=== PATIENT | female | born 1990 | race Caucasian/White ===

== ENCOUNTER 2023-12-29 07:45 | Outpatient (CLI) | payer BC, SELFPAY ==
--- NOTE | ~2023-12-29 | XR_ITS ---
EXAMINATION: XR lumbar spine 2-3V DATE: 12/29/2023 08:02 INDICATION: Low back pain, unspecified. TECHNIQUE: 3 views of lumbar spine were obtained. COMPARISON: None. FINDINGS: There is 6 degrees dextrocurvature of thoracolumbar spine. There is mild chronic anterior w edging of T11 vertebral body. There is mildly decreased disc height at L4-L5. There is multilevel mil [id number] facet joint osteoarthritis. IMPRESSION: 1. Mild lumbar spondylosis. Reviewed, dictated and finalized at location A. IMPRESSION: 1. Mild lumbar spondylosis.
== END 2023-12-29 07:46 ==
PROVIDERS: PCP Family Medicine; Visit Provider Nurse Practitioner Family
DX: M54.50 Low back pain, unspecified (principal); M43.06 Spondylolysis, lumbar region
CPT/HCPCS: 72100

== ENCOUNTER 2024-01-21 13:30 | Outpatient (CLI) | payer BC, SELFPAY ==
--- NOTE | 2024-01-21 13:39 | ECHO_ITS ---
Patient Info Name: Zaira Marti Age: 33 years : 1990 Gender: Female Ht: 66 in Wt: 270 lbs BSA: 2.45 m2 HR: 81 bpm BP: 162 / 105 mmHg Technical Quality: Fair Exam Date: 01/21/2024 1:47 PM Exam Location: Echo Lab Patient Status: Outpatient Admit Date: 01/21/2024 Staff Ordering Physician: Chaparro, Jakob Odell NP Polishing Machine Operator: Cynthia Gill RDCS Attending Provider: Gonzalo Lisa MD Referring Physician: Chaparro SINGH; Exam Type: CA echo doppler color flow Study Info Indications R42 - Dizziness and giddiness I10 - Essential (primary) hypertension Complete two-dimensional, color flow and Doppler transthoracic echocardiogram is performed. Summary 1. Complete two-dimensional, color flow and Doppler transthoracic echocardiogram is performed. 2. Left ventricular chamber dimension is normal. 3. Left ventricular systolic function is normal, estimated at 65-70%. 4. The left ventricular diastolic function is normal. 5. E/e' 10 is mildly elevated. 6. Left atrial chamber dimension is mildly enlarged. 7. There is trace pulmonic regurgitation. Left Ventricle E/e' 10 is mildly elevated. Left ventricular chamber dimension is normal. Left ventricular systolic function is normal, estimated at 65-70%. The left ventricular diastolic function is normal. Right Ventricle Right ventricular systolic function is normal and with normal TAPSE 2.2 cm. Right ventricular chamber dimension is normal. Left Atria Left atrial chamber dimension is mildly enlarged. Right Atria Right atrial chamber dimension is normal. Aortic Valve The aortic valve is trileaflet. There is no aortic valve stenosis. There is no aortic valve regurgitation. Pulmonic Valve There is trace pulmonic regurgitation. Mitral Valve There is no mitral valve stenosis. There is no mitral valve regurgitation. Tricuspid Valve There is no tricuspid valve regurgitation. Pericardium/Pleural There is no pericardial effusion. Inferior Vena Cava Normal inferior vena cava with >50% collapse upon inspiration consistent with normal right atrial pressure, 5 mmHg. Aorta The aortic root size at the sinus of Valsalva is normal. Left Ventricular Outflow Tract Name Value Normal LVOT Doppler LVOT Peak Gradient 5 mmHg LVOT Mean Gradient 2 mmHg LVOT VTI 20 cm LVOT VTI/AV VTI Ratio 0.8 Pulmonic Valve Name Value Normal RVOT Doppler RVOT Peak Gradient 3 mmHg PV Doppler PV Peak Gradient 4 mmHg PV Regurgitation Doppler VA Peak End Diastolic Velocity 109 cm/s Mitral Valve Name Value Normal
== END 2024-01-21 13:31 | disposition home or self-care (01) ==
PROVIDERS: PCP Family Medicine; Visit Provider Family Medicine
DX: R42 Dizziness and giddiness (principal); I10 Essential (primary) hypertension
CPT/HCPCS: 93306

== ENCOUNTER 2024-01-30 13:28 | Outpatient (CLI) | payer BC, SELFPAY ==
--- NOTE | ~2024-01-30 | US_ITS ---
EXAMINATION: US soft tissue LE RT DATE: 01/30/2024 13:56 INDICATION: Lateral right thigh lump TECHNIQUE: Multiple grayscale and Doppler ultrasound images of the region of concern at the lateral r ight thigh were obtained. COMPARISON: None FINDINGS/IMPRESSION: Normal appearance to the subcutaneous fat at the region of concern. No abnormal masses or fluid colle ctions identified. Reviewed, dictated and finalized at location A.
== END 2024-01-30 13:29 | disposition home or self-care (01) ==
LOC: ANHIMG 13:28
PROVIDERS: PCP Family Medicine; Visit Provider Plastic Surgery
DX: R22.41 Localized swelling, mass and lump, right lower limb (principal)
CPT/HCPCS: 76882

== ENCOUNTER 2024-05-15 13:12 | Outpatient (CLI) | payer BC, SELFPAY ==
--- NOTE | ~2024-05-15 | CT_ITS ---
EXAMINATION: CT sinus wo con DATE: 05/15/2024 13:26 INDICATION: Nasal drainage. TECHNIQUE: Computed tomography (CT) of the paranasal sinuses was performed without intravenous contra st. Iterative reconstruction technique was employed. The dose-length product was 263.20 mGy-cm. 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 The ethmoid sinuses are clear. There is mild mucosal thickening in the spheno id and bilateral maxillary sinuses. There is rightward deviation of the nasal septum. Right middle tu rbinate is paradoxical. There are bilateral Leanna cells. Left ostiomeatal unit is patent. There is o cclusion of right ostiomeatal unit at the hiatus semilunaris and infundibulum. IMPRESSION: 1. Mild mucosal thickening in the paranasal sinuses with occluded right ostiomeatal unit. 2. Rightward deviation of the nasal septum. Reviewed, dictated and finalized at location A. IMPRESSION: 1. Mild mucosal thickening in the paranasal sinuses with occluded right ostiome atal unit. 2. Rightward deviation of the nasal septum.
== END 2024-05-15 13:13 | disposition home or self-care (01) ==
LOC: MICIMG 13:13
DX: J34.89 Other specified disorders of nose and nasal sinuses (principal); J34.2 Deviated nasal septum
CPT/HCPCS: 70486

== ENCOUNTER 2024-10-29 12:45 | Outpatient (CLI) | payer BC, SELFPAY ==
--- NOTE | ~2024-10-29 | MR_ITS ---
MR breast BI wo/w con 10/29/2024 16:37 CDT INDICATION: Family history of breast cancer. TECHNIQUE: MRI of the breasts perform using standard protocol pre-and post IV contrast with the follo wing sequences: Axial T2 STIR, axial T1, axial vibrant T1 with fat suppression precontrast and multip hasic postcontrast. 20 cc of ProHance administered intravenously. COMPARISON: No prior studies for comparison. FINDINGS: Not dense: There are scattered areas of fibroglandular content. Right breast: There are no abnormalities on the precontrast sequences. There is minimal background pa renchymal enhancement. No enhancing lesions following contrast administration. No areas of enhancem ent meeting threshold criteria on CAD analysis. There are normal-appearing intramammary lymph nodes. No evidence of signal abnormalities in the axillary or internal mammary node distributions. LEFT BREAST: No signal abnormalities on precontrast sequences. There is minimal background parenchym al enhancement. No enhancing lesions following contrast administration. No areas of enhancement me eting threshold criteria on CAD analysis. There are normal-appearing intramammary lymph nodes. No victorina dence of signal abnormalities in the axillary or internal mammary node distributions.] IMPRESSION: 1: Right breast: Negative. No evidence of malignancy. BI-RADS category 1. 2: Left breast: Negative. No evidence of malignancy. BI-RADS category 1. Consider follow-up with diagnostic bilateral mammogram with possible additional ultrasound. Follow-up MRI may be useful for supplementing mammographic evaluation as clinically indicated. Reviewed, dictated and finalized at location B. IMPRESSION: 1: Right breast: Negative. No evidence of malignancy. BI-RADS category 1. 2: Left breast: Negative. No evidence of malignancy. BI-RADS category 1. Consider follow-up with diagnostic bilateral mammogram with possible additional ultrasound. Follow-up MRI may be useful for supplementing mammographic evaluat ion as clinically indicated.
--- OUTSIDE RECORDS SUMMARY | 2024-10-29 14:09 | XMS_ITS | Continuity of Care Document ---
Author Organization [facility] Address [address] [place] [address] Phone Care Team Providers Care Engine Pilot Name Role Phone Conversion MD, Doctor Unavailable Unavailabl e Medications Medication Instructions Dosage Effective Dates (start - stop) Status Comments VERAMYST 27.5MCG SPRAY(S) 1 [facility] - Active Advance Directives Directive Yes / No Effective Date File Name No Information Encounters Encounter Description Practice Location Reason(s) For Visit Diagnoses Date Provider Providers Copied on Encounter [facility], [address], [place], [place], [id number], tel:[phone] Conversion Department No Information [address] Conversion Doctor. [facility] [place], [address], . [facility], [address], [place], [place], [id number], tel:[phone] [facility] RHINITIS NECCHRONIC RHINITIS [address]. [address], [id number], . tel:[phone] Family History Family Member Type Diagnosis Age At Onset No Information Payers Payer name Insurance type Covered libertarian ID Authoriza tion(s) No Information Social History Type Description Quantity Date Captured Comments Sex Female Smoking Status No Information Chief Complaint And Reason For Visit No Information Reason For Referral Reason For Referral No Information History Of Present Illness Encounter Date Complaint History Of Prese nt Illness No Information Functional Status Date Functional Assessmen t No Information Instructions Date Instruction Additional Infor mation No Information Assessments Type Assessment Date No Information Patient Care Teams Name Effective Dates (start - stop) Status Members No Information
--- OUTSIDE RECORDS SUMMARY | 2024-10-29 14:09 | XMS_ITS | Clinical Summary ---
Author Organization [facility] Address [address] [place] [address] Care Team Providers Care Parenting Skills Instructor Name Role Phone Gonzalo Lisa MD Primary Care Provider [phone] Source Comments [facility] Affiliates and Associated Physician Practices is amultiple site organization consisting of ambulatory clinics and hospital sitesin [place], [place], [place] and [place]. This disclosure is being madepursuant to the Care Everywhere program and may not contain all information available regarding this patient. Last updated 18.[facility] Allergies Active Allergy Reactions Criticality Noted Date Comments Cat Hair Extract Rash,Itching Medium 01/06/2021 Allergic to the cat Codeine Rash Medium 02/17/2021 Nickel Rash,Itching Medium 01/06/2021 Medications * Be aware that medications may not be up to date on this document. Alwaysverify current medications with the patient. Medication Sig Dispensed Refills Start Date End Date Status lisinopril (PRINIVIL; ZESTRIL) 20 MG tablet Take 1 (one) tablet by mouth once daily 12/30/2020 Active cetirizine (ZYRTEC ALLERGY) 10 MG tablet Take 1 (one) tablet by mouth once daily Active amphetamine-dextroamp hetamine XR 24hr (Adderall XR) 15 MG capsule Take 1 (one) capsule by mouth once daily 11/05/2023 Active naproxen sodium (Anaprox Ds) 550 MG tablet Take 1 (one) tablet by mouth every 12 hours as needed FOR PAIN 02/21/2024 Active busPIRone (Buspar) 10 MG tablet Take 1 (one) tablet by mouth 2 times daily 03/19/2024 Active Airsupra 90-80 MCG/ACT AERO Inhale 2 puffs by mouth as directed 10/06/2024 Active Active Problems No known active problems Encounters Date Type Department Care Team Description 10/08/2024 9:00 AM CONTROLLER [employer] Office Visit [facility] - E[facility] [address] [place] [id number] Jean Peña MD PND (post-nasal drip) (Primary Dx); Nasal drainage; Nasal valve collapse; Nasal congestion; Recurrent sinus infections; Daytime sleepiness; Snoring 10/08/2024 Travel 09/22/2024 10:30 AM [employer]ER [employer] Office Visit [facility] - [facility] [address], [address] [place] [phone] Kiran Souza MD Nasal valve collapse (Primary Dx) 09/22/2024 Travel from Last 3 Months Immunizations Name Administration Dates Next Due COVID PFIZER 12+YR 30MCG/0.3mL 05/03/2023 Covid Pfizer primary Monoval ent 12+ yr 0.3ml 01/06/2022 Covid Pfizer primary monoval ent 12+ yr 0.3mL Purple cap 06/24/2021,11/02/2020,10/12/2020 Human Papilloma Virus Ninevalent Vaccine 023 INFLUENZA VACCINE, CELL CULT URE, QUADR. (FLUCELVAX QUADRIVALENT; 6MO+) (CCIIV4) 05/03/2023 INFLUENZA VACCINE, QUADR. (F LUZONE; FLULAVAL; FLUARIX; AFLURIA QUADRIVALENT; 6MO+), 0.5 ML (IIV4) 05/12/2021 TDAP, HISTORIC VACCINE 05/12/2021,09/20/2016 Family History Medical History Relation Name Comments Diabetes - Type 2 Father Gout Father Hyperlipidemia Father Hypertension Father Cancer - Breast Maternal Grandmother Depression Maternal Grandmother Hypertension Maternal Grandmother CVA Mother Cancer - Breast Mother DVT - Deep Vein Thrombosis Mother Depression Mother Diabetes - Type 2 Mother Hyperlipidemia Mother Hypertension Mother Osteoporosis Mother CAD (Coronary Artery Disease) Paternal Grandfather Diabetes - Type 2 Paternal Grandmother Hypertension Paternal Grandmother Osteoporosis Paternal Grandmother Relation Name Status Comments Father Alive Maternal Grandfather Alive Maternal Grandmother Alive Mother Alive Paternal Grandfather Paternal Grandmother Social History Tobacco Use Types Packs/Day Years Used Date Smoking Tobacco: Never Smokeless Tobacco: Never Tobacco Cessation:Counseling Given: Not Answered Alcohol Use Standard Drinks/Week Comments Never 0 (1 standard drink = 0.6 oz pur e alcohol) Sex and Gender Information Value Date Recorded Sex Assigned at Not on file Gender Identity Not on file Sexual Orientation Not on file Last Filed Vital Signs Vital Sign Reading Time Taken Comments Blood Pressure 161/106 10/08/2024 9:15 AM [employer] Pulse 76 10/08/2024 9:15 AM [employer] Temperature 35.8 C (96.4 F) 02/02/2021 11:54 AM CDT Respiratory Rate 16 02/02/2021 12:21 PM CDT Oxygen Saturation 98% 02/02/2021 1:07 PM CDT Inhaled Oxygen Concentration - - Weight 111.1 kg (245 lb) 10/08/2024 9:15 AM [employer] Height 167.6 cm (5' 6 ) 10/08/2024 9:15 AM [employer] Body Mass Index 39.54 10/08/2024 9:15 AM [employer] Plan of Treatment Upcoming Encounters Date Type Department Care Team (Late st Contact Info) Description 11/17/2024 8:00 AM CDT Office Visit [facility] - ENT [address] [place] [phone] 11/17/2024 8:00 AM CDT [facility] [address] [place] [phone] Jean Peña MD [address] [place] [address] [place] [address] 02/03/2025 8:20 AM CDT Office Visit [facility] [address] [place] [address] Shea Ryder APNP-INSTRUMENT TECHNICIAN APPRENTICE [address] OF PULMONARY/[place] [address] Health Maintenance Due Date Last Done Comments PAP SMEAR 1990 HIV SCREENING 2005 HEPATITIS C SCREENING 10/22/2008 HEPATITIS B VACCINE (1 of 3 - 19+ 3-dose series) 2009 HPV VACCINE (2 - 3-dose SCDM series) 05/31/2023 05/03/2023 COVID-19 VACCINE ( season) 2024 05/03/2023, 01/06/2022, 06/24/2021, Additional history exists INFLUENZA VACCINE (#1) 2024 05/03/2023, 2020 DEPRESSION SCREENING 08/13/2024 DTAP/TDAP/TD VACCINES (3 - Td or Tdap) 05/12/2031 05/12/2021, 09/20/2016 ZOSTER VACCINE (1 of 2) 2040 HIB VACCINE Aged Out No longer eligi ble based on patient's age to complete this topic MENINGOCOCCAL (Group B) VACCINE SHARED DECISION-MAKING Aged Out No longer eligible based on patient's age to complete this topic MENINGOCOCCAL GROUPS A/C/Y/W VACCINE Aged Out No longer eligible based on patient's age to complete this topic PNEUMOCOCCAL VACCINE Aged Out No long er eligible based on patient's age to complete this topic Medical Devices Implanted Type Area Long Line Teamster Device Identifier Shelf Expiration Date Model / Serial / Lot Graft Tissue Amniofix Purion Amnio Membr - [id number] Implanted:Qty: 1 on 02/02/2021 by Tylor Weiss Jr., MD at [facility] N/A: Abdomen MiMedx 11/11/2025 [id number] / [id number] / Description:KG Procedures Procedure Name Priority Date/Time Associated Diagnosis Comments PROC SINUS ENDOSCOPY Routine 10/08/2024 9:35 AM [employer] PND (post-nasal drip) Nasal drainage Nasal valve collapse Nasal congestion from Last 3 Months Results * PROC SINUS ENDOSCOPY (10/08/2024 9:35 AM CONTR[employer]) Narrative Margie Ellis - 10/08/2024 9:35 AM [employer] Margie Ellis 10/08/2024 10:24 AM Due to the findings on physical examination, in correlation with the patient's symptomatology, the decision was made to perform a procedure today in clinic. Verbal consent obtained prior to starting procedure. Procedure note: Procedure: Rigid Nasal Endoscopy Pre Op Dx: Nasal secretions Post Op: same Anesthesia: Bilateral Nasal Cavities sprayed with Lidocaine and Neosynephrine Detail: Rigid nasal endoscopy performed bilaterally. Note: Evidence of prior T&A, large tongue, normal sided uvula. Septum deviated superiorly. No masses or lesions seen. Right interior nasal cavity showed turbinate hypertrophy, mucus stranding present. Right middle and superior meatus show pink mucosa with mucus stranding present. Sphenoethmoidal recess inspected showing mucus stranding, intact mucosa. Left interior nasal cavity showed turbinate hypertrophy, mucus stranding present. Left middle and superior meatus show pink mucosa with mucus stranding present. Sphenoethmoidal recess inspected showing mucus stranding, intact mucosa. Jean Peña MD PROCEDURE/MINOR BISHOP RGICAL ORDERABLES from Last 3 Months Care Teams Parenting Skills Instructor Relationship Specialty Start Date End Date Gonzalo Lisa MD [address] [place] [address] [facility] - General 07/23/18
== END 2024-10-29 12:46 | disposition home or self-care (01) ==
PROVIDERS: PCP Family Medicine; Visit Provider Surgery
DX: Z12.31 Encounter for screening mammogram for malignant neoplasm of breast (principal); Z80.3 Family history of malignant neoplasm of breast
CPT/HCPCS: 77049; A9579; C8908